=== PATIENT | male | born 1960 | race Two or more races ===

== ENCOUNTER 2021-02-11 13:05 | Inpatient (IN) | payer OTHER ==
[~2021-02-11] VITALS: Ht 167.6 cm; Wt 74.8 kg
--- NOTE | 2021-02-11 20:10 | NUR ---
Admitted patient from [facility] via ambulance with 2 bun icer on a gurney. VS WNL. no acute distress identified. Denies pain. noted with weakness to BLE. Skin is intact upon assessment. Belonging list signed. Informed Dr Fieror, and Dr Leahy for med [facility], stated it will be reviewed in the morning. Oriented patient to the room. Kept call light within reach. Will continue to monitor.
[2021-02-11 20:40] VITALS: BP 154/76
[2021-02-11] MEDS ORDERED: Z GUARD REMEDY PASTE 57 GM TUBE TOP PRN (21:30)
[2021-02-11] MEDS ORDERED: PANT40TA2 PO (22:47)
[2021-02-11] MEDS ORDERED: ENOX100D SQ (22:47)
[2021-02-11] MEDS ORDERED: DEXT-164 PO (22:47)
[2021-02-11] MEDS ORDERED: POTA10TA9 PO (22:47)
[2021-02-11] MEDS ORDERED: AMYL1CAP58 PO (22:47)
[2021-02-11] MEDS ORDERED: LIDO700A30 TP (22:47)
[2021-02-11] MEDS ORDERED: SENN-261 PO (22:47)
[2021-02-11] MEDS ORDERED: NA P133E RC (22:47)
[2021-02-11] MEDS ORDERED: ATEN100T PO (22:47)
[2021-02-11] MEDS ORDERED: GLUC1KIT SQ (22:47)
[2021-02-11] MEDS ORDERED: NIAC500T23 PO (22:47)
[2021-02-11] MEDS ORDERED: ONDA4VIA52 IVP (22:47)
[2021-02-11] MEDS ORDERED: ICOS1CAP PO (22:47)
[2021-02-11] MEDS ORDERED: FENO200C PO (22:47)
[2021-02-11] MEDS ORDERED: BISA10SU61 RC (22:47)
[2021-02-11] MEDS ORDERED: OXYC15TA46 PO (22:47)
[2021-02-11] MEDS ORDERED: OMEP20TA20 PO (22:47)
[2021-02-11] MEDS ORDERED: MORP1SYR2 IV (22:47)
[2021-02-11] MEDS ORDERED: DOCU100T2 PO (22:47)
[2021-02-11] MEDS ORDERED: METO5VIA3 IVP (22:47)
[2021-02-11] MEDS ORDERED: OXYC5TAB3 PO (22:47)
[2021-02-11] MEDS ORDERED: MAGN400O6 PO (22:47)
[2021-02-12 04:40] VITALS: BP 107/54
--- NOTE | 2021-02-12 06:13 | NUR ---
Patient remained stable during the shift. Denies pain/discomfort. Frequent checks done. Safety precautions maintained. All due meds given. all needs attended. Call light within reach. Will endorse to the next shift for continuity of care.
[2021-02-12] MEDS ORDERED: Z GUARD REMEDY PASTE 57 GM TUBE TOP PRN (07:45)
[2021-02-12 08:02] VITALS: BP 121/81
[2021-02-12] MEDS ORDERED: BISACODYL 10 MG SUPP.RECT RC PRN (10:45)
[2021-02-12] MEDS ORDERED: METOCLOPRAMIDE HCL 10 MG/2 ML VIAL IV PRN (10:45)
[2021-02-12] MEDS ORDERED: OXYCODONE HCL 5 MG TABLET PO PRN (10:45)
[2021-02-12] MEDS ORDERED: ONDANSETRON 4 MG/2 ML VIAL IV PRN (10:45)
[2021-02-12] MEDS ORDERED: SENNOSIDES 1 TABLET PO PRN (10:45)
[2021-02-12] MEDS ORDERED: INSULIN REGULAR, HUMAN 300 UNITS/3 ML VIAL SQ PRN (11:00)
[2021-02-12] MEDS ORDERED: DEXTROSE 50% 50 ML DISP.SYRIN IV PRN (11:00)
[2021-02-12] MEDS: BLOOD SUGAR DIAGNOSTIC 1 EACH STRIP VI SCH ×3 (12:02→20:20)
[2021-02-12] MEDS: INSULIN REGULAR, HUMAN 300 UNIT/3 ML VIAL SQ PRN (12:14)
[2021-02-12] MEDS: LIPASE/PROTEASE/AMYLASE 4200 UNITS CAPSULE.DR PO SCH ×2 (13:22→18:12)
[2021-02-12 16:16] VITALS: BP 123/73
[2021-02-12] MEDS: ENOXAPARIN SODIUM 40 MG/0.4 ML DISP.SYRIN SQ SCH (20:09)
[2021-02-12] MEDS ORDERED: LIDOCAINE 5% PATCH TD SCH (21:00)
[2021-02-12] MEDS ORDERED: ENOXAPARIN SODIUM 100 MG/ML DISP.SYRIN SQ SCH (21:00)
[2021-02-12 21:13] VITALS: BP 108/70
[2021-02-13 05:24] VITALS: BP 116/80
[2021-02-13] MEDS: PANTOPRAZOLE SODIUM 40 MG TABLET.DR PO SCH (06:02)
[2021-02-13] MEDS: BLOOD SUGAR DIAGNOSTIC 1 EACH STRIP VI SCH ×4 (06:03→21:09)
[2021-02-13 07:01] LABS: HEMATOCRIT 25.1 % (36.7-47.1); PLATELET COUNT (AUTO) 233 K/uL (152-348)
[2021-02-13] MEDS: LIPASE/PROTEASE/AMYLASE 4200 UNITS CAPSULE.DR PO SCH ×3 (08:26→18:15)
[2021-02-13] MEDS: FENOFIBRATE NANOCRYSTALLIZED 145 MG TABLET PO SCH (08:48)
[2021-02-13] MEDS: ATENOLOL 50 MG TABLET PO SCH (08:49)
[2021-02-13 08:56] LABS: BILIRUBIN,TOTAL 1.1 mg/dL (0.2-1.0); CREATININE 1.1 mg/dL (0.6-1.3); MAGNESIUM 1.6 mg/dL (1.8-2.4); PHOSPHOROUS 4.4 mg/dL (2.5-4.9); POTASSIUM 4.1 mmol/L (3.5-5.1); TOTAL PROTEIN, SERUM 7.1 g/dL (6.4-8.2); URIC ACID 8.3 mg/dL (3.5-7.2)
[2021-02-13 09:05] VITALS: BP 100/76
[2021-02-13] MEDS ORDERED: MAGNESIUM OXIDE 400 MG TABLET PO ONE (09:15)
[2021-02-13 11:05] LABS: LYMPHOCYTES % (MANUAL) 18 % (20-40); MONOCYTES % (MANUAL) 13 % (2-10); NEUTROPHILS % (MANUAL) 69 % (42-75)
[2021-02-13] MEDS: INSULIN REGULAR, HUMAN 300 UNIT/3 ML VIAL SQ PRN (12:19)
--- NOTE | 2021-02-13 18:44 | NUR ---
Patient resting in bed. AOx4. On room air. No signs of acute distress. Patient compliant with medications and care. Patient denies pain/ discomfort at this time. Patient participated with Physical and Occupational therapy sessions. Needs anticipated and met. Call light within reach and bed alarm on for safety. Will endorse to incoming shift for continuity of care.
--- NOTE | 2021-02-13 19:40 | NUR ---
Patient resting in bed. AOx4. On room air. Patient denies pain/ discomfort at this time. Needs anticipated and met. Call light within reach and bed alarm on for safety. Will continue to monitor.
[2021-02-13 20:21] VITALS: BP 141/82
[2021-02-13] MEDS: ENOXAPARIN SODIUM 40 MG/0.4 ML DISP.SYRIN SQ SCH (21:12)
[2021-02-14 04:21] VITALS: BP 139/85
[2021-02-14] MEDS: PANTOPRAZOLE SODIUM 40 MG TABLET.DR PO SCH (06:16)
--- NOTE | 2021-02-14 06:29 | NUR ---
Patient slept through the night with no complaints. AAOx4. All due medications were given as ordered. AC acchuchek was .Safety and comfort measures were maintained. Will endorse to day shift nurse.
[2021-02-14] MEDS: BLOOD SUGAR DIAGNOSTIC 1 EACH STRIP VI SCH ×4 (06:30→20:51)
[2021-02-14 07:40] VITALS: BP 125/78
[2021-02-14] MEDS: ATENOLOL 50 MG TABLET PO SCH (08:13)
[2021-02-14] MEDS: FENOFIBRATE NANOCRYSTALLIZED 145 MG TABLET PO SCH (08:13)
[2021-02-14] MEDS: LIPASE/PROTEASE/AMYLASE 4200 UNITS CAPSULE.DR PO SCH ×3 (08:14→17:12)
[2021-02-14] MEDS: ALLOPURINOL 100 MG TABLET PO SCH (08:14)
--- NOTE | 2021-02-14 08:49 | NUR ---
INDIVIDUALIZED PLAN OF CARE
[2021-02-14] MEDS: INSULIN REGULAR, HUMAN 300 UNIT/3 ML VIAL SQ PRN (11:28)
[2021-02-14 15:53] VITALS: BP 122/70
--- NOTE | 2021-02-14 19:00 | NUR ---
Received patient lying in bed watching tv. AAOX4, and able to verbalized needs. Patient denies SOB, chest pain or dizziness. Safety precautions and comfort measures initiated. Bed in locked position, call light button and frequently used items within reach. Will continue to monitor.
[2021-02-14 20:16] VITALS: BP 115/69
[2021-02-14] MEDS: ENOXAPARIN SODIUM 40 MG/0.4 ML DISP.SYRIN SQ SCH (20:49)
[2021-02-15 04:35] VITALS: BP 124/73
[2021-02-15] MEDS: PANTOPRAZOLE SODIUM 40 MG TABLET.DR PO SCH (06:25)
[2021-02-15] MEDS: BLOOD SUGAR DIAGNOSTIC 1 EACH STRIP VI SCH ×4 (06:30→20:01)
--- NOTE | 2021-02-15 06:58 | NUR ---
Patient slept through the night. Patient denies SOB, chest pain or dizziness. All due medications were given as ordered. AC accuchek done, 115. All needs were attended to and met. Safety precautions and comfort measures maintained. Call light button and frequently used items within reach. Will endorse to day shift.
[2021-02-15 08:00] VITALS: BP 130/79
[2021-02-15] MEDS: FENOFIBRATE NANOCRYSTALLIZED 145 MG TABLET PO SCH (10:09)
[2021-02-15] MEDS: ALLOPURINOL 100 MG TABLET PO SCH (10:09)
[2021-02-15] MEDS: ATENOLOL 50 MG TABLET PO SCH (10:09)
[2021-02-15] MEDS: LIPASE/PROTEASE/AMYLASE 4200 UNITS CAPSULE.DR PO SCH ×3 (10:10→17:19)
[2021-02-15 16:00] VITALS: BP 123/68
[2021-02-15] MEDS: ENOXAPARIN SODIUM 40 MG/0.4 ML DISP.SYRIN SQ SCH (20:00)
[2021-02-15 20:50] VITALS: BP 109/68
[2021-02-16 04:12] VITALS: BP 122/75
[2021-02-16] MEDS: PANTOPRAZOLE SODIUM 40 MG TABLET.DR PO SCH (06:21)
[2021-02-16] MEDS: BLOOD SUGAR DIAGNOSTIC 1 EACH STRIP VI SCH (06:31)
--- NOTE | 2021-02-16 06:48 | NUR ---
Pt slept intermittently throughout the night and easily arousable for care. Due medications given on time and tolerated well. Accuchecks done, latest BS 109. All needs attended. Call light placed within reach. Frequent visual checks done. Will endorse to next shift for continuity of care.
[2021-02-16 08:00] VITALS: BP 115/66
[2021-02-16] MEDS: LIPASE/PROTEASE/AMYLASE 4200 UNITS CAPSULE.DR PO SCH ×3 (09:01→17:31)
[2021-02-16] MEDS: ALLOPURINOL 100 MG TABLET PO SCH (09:01)
[2021-02-16] MEDS: FENOFIBRATE NANOCRYSTALLIZED 145 MG TABLET PO SCH (09:01)
[2021-02-16] MEDS: ATENOLOL 50 MG TABLET PO SCH (10:00)
[2021-02-16 16:00] VITALS: BP 108/70
--- NOTE | 2021-02-16 20:00 | NUR ---
RECEIVED PATIENT IN HIS ROOM IN BED. HE IS WATCHING TV. NOTED A/O X 4 IN NO DISTRESS. V/S STABLE. PATIENT WAS REMAINED THAT A STOOL SAMPLE WAS NEEDED AND TO CALL WHEN HE FEELS A NEEDS TO HAVE BM. PT VERBALIZED UNDERSTANDING. CALL LIGHT AND PERSONAL ITEMS WITHIN REACHED. WILL CONTINUE TO MONITOR.
[2021-02-16 20:59] VITALS: BP 118/75
[2021-02-16] MEDS: ENOXAPARIN SODIUM 40 MG/0.4 ML DISP.SYRIN SQ SCH (21:32)
[2021-02-17] MEDS: PANTOPRAZOLE SODIUM 40 MG TABLET.DR PO SCH (06:34)
[2021-02-17] MEDS: FENOFIBRATE NANOCRYSTALLIZED 145 MG TABLET PO SCH (08:51)
[2021-02-17] MEDS: LIPASE/PROTEASE/AMYLASE 4200 UNITS CAPSULE.DR PO SCH ×3 (08:51→17:28)
[2021-02-17] MEDS: ATENOLOL 50 MG TABLET PO SCH (08:51)
[2021-02-17] MEDS: ALLOPURINOL 100 MG TABLET PO SCH (08:52)
--- NOTE | 2021-02-17 09:50 | NUR ---
Stool sample collected and sent to the lab as ordered. will continue to monitor.
[2021-02-17 12:00] VITALS: BP 130/67
--- NOTE | 2021-02-17 12:02 | NUR ---
INTERDISCIPLINARY TEAM CONFERENCE
[2021-02-17 12:33] LABS: HEMATOCRIT 26.1 % (36.7-47.1); MEAN CORPUSCULAR VOLUME 99.5 fL (73.0-96.2); PLATELET COUNT (AUTO) 215 K/uL (152-348)
[2021-02-17 13:21] LABS: BILIRUBIN,TOTAL 1.2 mg/dL (0.2-1.0); CREATININE 1.1 mg/dL (0.6-1.3); PHOSPHOROUS 3.2 mg/dL (2.5-4.9); POTASSIUM 3.9 mmol/L (3.5-5.1); TOTAL PROTEIN, SERUM 7.3 g/dL (6.4-8.2)
[2021-02-17 13:34] LABS: *OCCULT BLOOD STOOL NEGATIVE (NEGATIVE)
[2021-02-17 13:55] LABS: THYROID STIMULATING HORMONE 0.802 mIU/mL (0.358-3.740)
[2021-02-17 16:00] VITALS: BP 122/65
--- NOTE | 2021-02-17 18:14 | NUR ---
NO DISTRESS OR CONCERN IDENTIFIED DURING THE SHIFT. UA TO BE COLLECTED, SPECIMEN CUP AT BEDSIDE. ALL NEEDS ATTENDED. ALL DUE MEDS GIVEN ORDERED. KEPT CALL LIGHT WITHIN REACH. FREQUENT VISUAL CHECKS DONE. WILL ENDORSE TO THE NEXT SHIFT FOR CONTINUITY OF CARE.
[2021-02-17 19:12] LABS: *BILIRUBIN,URIN NEGATIVE (NEGATIVE); *BLOOD, URINE NEGATIVE (NEGATIVE); *CLARITY,URINE CLEAR (CLEAR); *COLOR,URINE YELLOW (YELLOW); *KETONES,URINE NEGATIVE (NEGATIVE); *UROBILINOGEN,URINE 0.2 E.U./dl (NORMAL); LEUKOCYTE ESTERASE ,URINE NEGATIVE (NEGATIVE); NITRITE, URINE NEGATIVE (NEGATIVE); PH,URINE 5.5 (5.0-8.0); UGLUCOSE NEGATIVE (NEGATIVE)
[2021-02-17] MEDS: FERROUS GLUCONATE 324 MG TABLET PO SCH (20:12)
[2021-02-17 20:20] VITALS: BP 101/62
[2021-02-18 04:00] VITALS: BP 118/77
--- NOTE | 2021-02-18 05:52 | NUR ---
Slept throughout the night. Denies pain or SOB. Very pleasant, able to make needs known. Safety and comfort provided. Call light within reach. Will endorse to day shift.
[2021-02-18] MEDS: PANTOPRAZOLE SODIUM 40 MG TABLET.DR PO SCH (06:38)
[2021-02-18 08:07] VITALS: BP 114/71
[2021-02-18] MEDS: FENOFIBRATE NANOCRYSTALLIZED 145 MG TABLET PO SCH (08:29)
[2021-02-18] MEDS: ALLOPURINOL 100 MG TABLET PO SCH (08:30)
[2021-02-18] MEDS: ATENOLOL 50 MG TABLET PO SCH (08:30)
[2021-02-18] MEDS: FERROUS GLUCONATE 324 MG TABLET PO SCH (08:30)
[2021-02-18] MEDS: LIPASE/PROTEASE/AMYLASE 4200 UNITS CAPSULE.DR PO SCH ×3 (08:31→17:05)
[2021-02-18 12:00] VITALS: BP 111/72
--- NOTE | 2021-02-18 17:15 | NUR ---
DISCHARGED PATIENT VIA PRIVATE CAR WITH HIS BROTHER. LEFT WITH VS WNL. NO DISTRESS OR PAIN IDENTIFIED. SKIN IS INTACT. DISCHARGE INSTRUCTIONS GIVEN, NOTED WITH UNDERSTANDING. BELONGING LIST SIGNED. KEPT SAFE DURING THE SHIFT. ALL NEEDS ATTENDED. ALL DUE MEDS GIVEN.
== END 2021-02-18 17:10 | disposition home health service (06) | DRG 351 ==
PROVIDERS: ADMIT Physical Medicine & Rehabilitation Pain Medicine; ATTEND Physical Medicine & Rehabilitation Pain Medicine
DX: M62.81 Muscle weakness (generalized) (principal); K85.81 Other acute pancreatitis with uninfected necrosis; E43 Unspecified severe protein-calorie malnutrition; K83.1 Obstruction of bile duct; K86.3 Pseudocyst of pancreas; R18.8 Other ascites; E11.22 Type 2 diabetes mellitus with diabetic chronic kidney disease; D53.9 Nutritional anemia, unspecified; E78.2 Mixed hyperlipidemia; E83.42 Hypomagnesemia; I12.9 Hypertensive chronic kidney disease with stage 1 through stage 4 chronic kidney disease, or unspecified chronic kidney disease; I25.10 Atherosclerotic heart disease of native coronary artery without angina pectoris; N18.9 Chronic kidney disease, unspecified; I25.119 Atherosclerotic heart disease of native coronary artery with unspecified angina pectoris; I25.2 Old myocardial infarction; R74.01 Elevation of levels of liver transaminase levels; Z88.8 Allergy status to other drugs, medicaments and biological substances
CPT/HCPCS: 36415; 70030-TC; 83550; 83735; 84100; 84443; 84550; 85025; 87086; 97161; A4663; J1650; J1815; J8499